=== PATIENT | male | born 1945 | race Caucasian/White ===

== ENCOUNTER 2017-05-09 18:42 | Emergency (ER) | payer MEDICARE, OTHER ==
[~2017-05-09] VITALS: Ht 177.8 cm; Wt 136.1 kg
[~2017-05-09 18:42] MED LIST: BP MED UNKNOWN; CRESTOR40 MG PO; EFFEXOR XR75 MG PO; KEFLEX500 MG PO; NORVASC5 MG PO; UNKNOWN CHOLESTEROL
[2017-05-09 19:29] LABS: ABSOLUTE BASOPHILS 0.1 thou/uL (0.0-0.2); ABSOLUTE EOSINOPHILS 0.3 thou/uL (0.0-0.7); ABSOLUTE MONOCYTES 0.5 thou/uL (0.0-1.2); ABSOLUTE NEUTROPHILS 5.3 thou/uL (1.6-8.1); BASOPHILS 0.7 %; EOSINOPHILS 3.4 %; HEMOGLOBIN 15.2 gm/dL (14.0-18.0); LYMPHOCYTES 24.8 %; MCH 30.2 pg (26.0-34.0); MCHC 34.6 g/dL (28.0-37.0); MCV 87.2 fL (80.0-100.0); MONOCYTES 6.7 %; MPV 8.4 fl. (7.2-11.1); NUCLEATED RBCS 0 /100WBC; PLATELET COUNT* 155 thou/uL (150-400); POLYS 64.4 %; RBC 5.04 mil/uL (4.50-6.00); RDW-CV 14.3 % (10.5-14.5); WBC 8.2 thou/uL (4.0-11.0)
[2017-05-09 19:34] LABS: ANION GAP 4 mmol/L (7-16); BUN 19 mg/dL (7-18); CALCIUM 8.7 mg/dL (8.5-10.1); CHLORIDE 104 mmol/L (98-107); CO2 31 mmol/L (21-32); CREATININE 1.1 mg/dL (0.6-1.3); GLUCOSE 145 mg/dL (70-99); SODIUM 139 mmol/L (136-145)
[2017-05-09] MEDS ORDERED: COZAAR 50 MG TA50 M2 PO (19:37)
[2017-05-09] MEDS ORDERED: TOPROL XL25 MG PO (19:37)
[2017-05-09] MEDS ORDERED: PROPRANOLOL 1010 MG PO (19:40)
[2017-05-09 19:41] LABS: ALBUMIN 3.7 g/dL (3.4-5.0); ALKALINE PHOSPHATASE 78 U/L (46-116); SGOT 34 U/L (15-37); SGPT 25 U/L (30-65); TOTAL BILIRUBIN 0.7 mg/dL (<0.1-1.0); TOTAL PROTEIN 6.8 g/dL (6.4-8.2); TROPONIN-I LEVEL <0.06 ng/mL (<0.06)
[2017-05-09] MEDS ORDERED: PRADAXA150 MG PO (19:41)
[2017-05-09] MEDS ORDERED: EFFEXOR XR75 MG PO (19:42)
[2017-05-09] MEDS ORDERED: ZETIA10 MG PO (19:42)
[2017-05-09] MEDS ORDERED: CRESTOR20 MG PO (19:42)
[2017-05-09 20:31] LABS: URINE BILIRUBIN NEGATIVE (Negative); URINE BLOOD NEGATIVE (Negative); URINE CLARITY CLEAR; URINE COLOR YELLOW; URINE GLUCOSE-RANDOM NEGATIVE (Negative); URINE KETONES NEGATIVE (Negative); URINE LEUKOCYTES-REFLEX NEGATIVE (Negative); URINE NITRITE-REFLEX NEGATIVE (Negative); URINE PROTEIN NEGATIVE (Negative); URINE UROBILINOGEN 0.2 E.U./dl (0.2-1.0)
[2017-05-09 21:00] VITALS: BP 167/89
--- NOTE | 2017-05-10 13:43 | EKG ---
[place] [address] ELECTROCARDIOGRAM REPORT Name: SILVER CASTILLO Room: [facility]#: [id number] Admission: 05/09/17 Attend Phys: Discharge: 05/09/17 Date of : 49 Report #: [id number] THIS REPORT FOR: //name// [facility] ED Test Date: 2017-05-09 Test Time: 18:46:48 Pat Name: SILVER CASTILLO Department: Room: Gender: M [place]ater: Isabella [place] : 1945 Requested By: Serge Coles Order Number: [id number] Daquan MD: Carlos Souza Measurements Intervals [place] Rate: 54 P: 36 WA: 176 QRS: 2 QRSD: 118 T: 34 QT: 432 QTc: 410 Interpretive Statements Sinus rhythm Incomplete right bundle branch block No previous ECG available for comparison Electronically Signed On 05-10-2017 13:42:57 [employer] SERV[employer] by Carlos Souza [email or web address] <ELECTRONICALLY SIGNED> By: Carlos Souza MD, [facility] 05/10/17 1342 1846 1846 Carlos Souza MD, FACC /EPI
== END 2017-05-09 21:03 | disposition home or self-care (01) ==
LOC: M.ERS 18:42
PROVIDERS: Emergency Medicine Emergency Medical Services
DX: I10 Essential (primary) hypertension (principal); R51 Headache; E78.00 Pure hypercholesterolemia, unspecified; F32.9 Major depressive disorder, single episode, unspecified; Z95.5 Presence of coronary angioplasty implant and graft; Z86.73 Personal history of transient ischemic attack (TIA), and cerebral infarction without residual deficits

== ENCOUNTER → 2017-05-12 | Outpatient (CLI) | payer OTHER ==
[~2017-05-12] MED LIST changes: +COZAAR 50 MG TA50 M2 PO; +CRESTOR20 MG PO; +PRADAXA150 MG PO; +PROPRANOLOL 1010 MG PO; +TOPROL XL25 MG PO; +ZETIA10 MG PO
== END ==
LOC: M.CT 09:00
DX: Z13.6 Encounter for screening for cardiovascular disorders (principal)

== ENCOUNTER → 2018-06-18 | Outpatient (CLI) | payer MEDICARE, OTHER | LOC: M.LAB 06-17 15:49 | DX: Z01.812 Encounter for preprocedural laboratory examination (principal) ==